=== PATIENT | female | born 1955 | race African-American/Black ===

== ENCOUNTER 2018-09-26 10:39 | Emergency (ER) | payer OTHER ==
[~2018-09-26] VITALS: Ht 172.7 cm; Wt 90.9 kg
[2018-09-26] MEDS ORDERED: IBUPROFEN 600MG TABLET PO ONE (13:15)
[2018-09-26 14:25] VITALS: BP 140/66
== END 2018-09-26 14:30 | disposition home or self-care (01) ==
LOC: ER 10:39
DX: S80.02XA Contusion of left knee, initial encounter (principal); S80.01XA Contusion of right knee, initial encounter; I10 Essential (primary) hypertension; W18.39XA Other fall on same level, initial encounter; Y93.89 Activity, other specified; Y92.89 Other specified places as the place of occurrence of the external cause; Y99.8 Other external cause status; Z88.0 Allergy status to penicillin
CPT/HCPCS: 72100; 73560; 99284